=== PATIENT | female | born 1975 | race Caucasian/White ===

== ENCOUNTER 2016-07-29 15:01 | Outpatient (CLI) | payer OTHER ==
--- NOTE | 2016-07-29 15:25 | DIAGNOSTIC IMAGING REPORT ---
PROCEDURE: XR CHEST 2 VIEW INDICATION: DIAGNOSIS COSTOCHONDRITIS TECHNIQUE: PA and lateral views. COMPARISON: None. FINDINGS: Lungs are clear. Heart and mediastinum are normal. Numerous osteophytes throughout the thoracic spine. IMPRESSION: 1. No acute disease.
== END 2016-07-29 23:00 ==
LOC: XR SRH 15:01
DX: M94.0 Chondrocostal junction syndrome [Tietze] (principal)